=== PATIENT | female | born 1985 | race Hispanic/Latino ===

== ENCOUNTER 2023-04-09 15:47 | Inpatient (IN) | payer SELFPAY ==
[~2023-04-09] VITALS: Ht 160 cm; Wt 76.2 kg
[~2023-04-09 15:47] MED LIST: KETOROLAC TROMETHAMINE 30 MG/ML VIAL ONE; LIDOCAINE HCL 2% LOCAL INJ 5 ML SDV VIAL INJ ONE; ONDANSETRON HCL INJ 2MG/ML 2ML 2 MG/ML VIAL ONE; PROPOFOL IV EMULSION 10 MG/ML 20 ML VIAL ONE; ROCURONIUM BROMIDE 10 MG/ML 5ML VIAL IV ONE; SEVOFLURANE INHAL SOLN 250 ML PEN BTL ONE; SUCCINYLCHOLINE CHLORIDE 20 MG/ML 10ML VIAL ONE
[2023-04-09] MEDS ORDERED: ONDANSETRON HCL INJ 2MG/ML 2ML 2 MG/ML VIAL IV STA ×2 (16:11→19:18)
[2023-04-09] MEDS ORDERED: FAMOTIDINE 20 MG/2 ML VIAL IV STA (16:11)
[2023-04-09] MEDS ORDERED: KETOROLAC TROMETHAMINE 30 MG/ML VIAL IV STA (16:11)
[2023-04-09] MEDS ORDERED: ONDANSETRON HCL INJ 2MG/ML 2ML 2 MG/ML VIAL ONE ×2 (16:14→21:04)
[2023-04-09] MEDS ORDERED: SODIUM CHLORIDE 0.9% 1000ML 1,000 ML ONE (16:14)
[2023-04-09] MEDS ORDERED: SODIUM CHLORIDE 0.9% 1000ML 1,000 ML IV ONE (16:15)
[2023-04-09] MEDS ORDERED: IOPAMIDOL 370 MG/ML 100 ML INFUS..BTL INJ ONE (16:22)
[2023-04-09] MEDS ORDERED: PIPERACILLIN/TAZOBACTAM 3.375 GM VIAL ONE (18:40)
[2023-04-09] MEDS ORDERED: Morphine 2mg Syringe 2 MG/ML SYR IV ONE ×2 (19:30→21:45)
[2023-04-09] MEDS ORDERED: Morphine 4mg INJECTION 4 MG/ML INJ ONE (21:04)
[2023-04-09] MEDS ORDERED: Morphine 4mg INJECTION 4 MG/ML INJ IV ONE (21:45)
[2023-04-09 22:00] VITALS: BP 116/78; PULSE 72; RESP 18; O2SAT 100
[2023-04-09 22:20] VITALS: BP 104/67; PULSE 67; RESP 18; TEMP 98.5; O2SAT 100
[2023-04-09] MEDS ORDERED: ALBUTEROL/IPRATROPIUM 3 ML NEB NEB PRN (22:45)
[2023-04-09] MEDS ORDERED: HYDRALAZINE HCL 20 MG/ML VIAL IV PRN (22:45)
[2023-04-09] MEDS ORDERED: ONDANSETRON HCL INJ 2MG/ML 2ML 2 MG/ML VIAL IV PRN (22:45)
[2023-04-09] MEDS ORDERED: BENZONATATE 100 MG CAP PO PRN (22:45)
[2023-04-09] MEDS ORDERED: DEXTROSE 50% SYRINGE 50 ML IV PRN (22:45)
[2023-04-09] MEDS ORDERED: SIMETHICONE 80 MG CHEW PO PRN (22:45)
[2023-04-09] MEDS ORDERED: MELATONIN 5 MG TABLET PO PRN (22:45)
[2023-04-09] MEDS ORDERED: LIDOCAINE 4% PATCH TP PRN (22:45)
[2023-04-09] MEDS ORDERED: DOCUSATE SODIUM 100 MG CAP PO PRN (22:45)
[2023-04-09] MEDS ORDERED: ACETAMINOPHEN 325 MG TAB PO PRN (22:45)
[2023-04-09] MEDS ORDERED: DIPHENHYDRAMINE HCL 25 MG CAP PO PRN (22:45)
[2023-04-09] MEDS ORDERED: POTASSIUM CHLORIDE 20 MEQ TAB CR PO PRN (22:45)
[2023-04-09 23:10] VITALS: BP 133/100; PULSE 96; RESP 18; TEMP 98.2; O2SAT 100
[2023-04-09] MEDS: HYDROCODONE/APAP 5MG-325MG TAB PO PRN (23:36)
[2023-04-09] MEDS: DEXTROSE 5%/0.9% SOD CHL 1,000 ML IV SCH (23:36)
[2023-04-10] VITALS (7 sets, daily range): BP systolic 86–102; BP diastolic 51–65; PULSE 66–88; RESP 16–18; TEMP 97.8–99.3; O2SAT 96–100
[2023-04-10] MEDS: KETOROLAC TROMETHAMINE 30 MG/ML VIAL IV PRN ×2 (02:46→08:48)
[2023-04-10] MEDS: PANTOPRAZOLE SOD 40 MG TABEC PO SCH (07:30)
[2023-04-10 07:35] LABS: BASOPHILS # (AUTO) 0.1 (0.0-0.1); BASOPHILS % 0.5 % (0.0-1.0); EOSINOPHILS # (AUTO) 0.1 (0.0-0.4); EOSINOPHILS % 0.7 % (0.0-6.0); HEMATOCRIT 31.2 % (34.2-44.1); HEMOGLOBIN 10.2 g/dL (12.0-16.0); LYMPHOCYTES # (AUTO) 1.1 (1.0-3.2); LYMPHOCYTES % 10.5 % (18.0-39.1); MEAN CORPUSCULAR HEMOGLOBIN 27.9 pg (28-32); MEAN CORPUSCULAR HGB CONC 32.7 g/dL (31-35); MEAN CORPUSCULAR VOLUME 85.2 fL (81-99); MONOCYTES % 9.5 % (4.4-11.3); NEUTROPHILS # (AUTO) 8.4 (2.1-6.9); NEUTROPHILS % 78.5 % (38.7-80.0); PLATELET COUNT 236 x10e3/uL (140-360); RED BLOOD COUNT 3.66 x10e6/uL (3.6-5.1); RED CELL DISTRIBUTION WIDTH 16.1 % (11.7-14.4); WHITE BLOOD COUNT 10.73 x10e3/uL (4.8-10.8)
[2023-04-10 07:46] LABS: ANION GAP 10.5 mmol/L (8-16); CALCIUM 8.4 mg/dL (8.4-10.2); CREATININE, SERUM 0.82 mg/dL (0.57-1.11); POTASSIUM 3.5 mmol/L (3.5-5.1)
[2023-04-10] MEDS: DEXTROSE 5%/0.9% SOD CHL 1,000 ML IV SCH (08:50)
[2023-04-10] MEDS ORDERED: ACETAMINOPHEN 1000 MG/100 ML IV STA (13:19)
[2023-04-10] MEDS ORDERED: FENTANYL CITRATE/PF 100MCG/2 ML INJ ONE ×2 (13:41→18:31)
[2023-04-10] MEDS ORDERED: MIDAZOLAM HCL 2 MG/2 ML VIAL ONE (13:41)
[2023-04-10] MEDS ORDERED: SODIUM CHLORIDE 0.9% 1000ML 1,000 ML IV ONE (14:00)
[2023-04-10] MEDS ORDERED: ACETAMINOPHEN 1000 MG/100 ML 100 ML IV ONE (16:27)
[2023-04-10] MEDS ORDERED: SUGAMMADEX SODIUM 200 MG/2 ML VIAL IV ONE (16:27)
[2023-04-10] MEDS ORDERED: BUPIVACAINE HCL 0.5% INJ 30 ML VIAL INJ ONE (16:34)
[2023-04-10] MEDS ORDERED: BUPIVACAINE 0.25% 30ML SDV ONE (16:56)
[2023-04-10] MEDS ORDERED: Morphine 4mg INJECTION 4 MG/ML INJ IV PRN (18:30)
[2023-04-10] MEDS ORDERED: FENTANYL CITRATE/PF 100MCG/2 ML INJ IV ONE (18:30)
[2023-04-10] MEDS ORDERED: ONDANSETRON HCL INJ 2MG/ML 2ML 2 MG/ML VIAL ONE (18:37)
[2023-04-10] MEDS ORDERED: ONDANSETRON HCL INJ 2MG/ML 2ML 2 MG/ML VIAL IV ONE (18:38)
[2023-04-11] VITALS (7 sets, daily range): BP systolic 85–107; BP diastolic 53–65; PULSE 62–85; RESP 16–20; TEMP 98.2–98.8; O2SAT 98–100
[2023-04-11] MEDS: HYDROCODONE/APAP 5MG-325MG TAB PO PRN ×3 (00:19→11:43)
[2023-04-11] MEDS: PANTOPRAZOLE SOD 40 MG TABEC PO SCH (06:00)
[2023-04-11 14:16] LABS: HEMATOCRIT 28.7 % (34.2-44.1); HEMOGLOBIN 8.8 g/dL (12.0-16.0)
[2023-04-11 14:38] LABS: ANION GAP 11.6 mmol/L (8-16); CALCIUM 8.4 mg/dL (8.4-10.2); CREATININE, SERUM 0.83 mg/dL (0.57-1.11); POTASSIUM 3.6 mmol/L (3.5-5.1)
[2023-04-11] MEDS ORDERED: SODIUM CHLORIDE 0.9% 500ML 500 ML IV ONE (15:00)
[2023-04-11] MEDS: ACETAMINOPHEN/CODEINE 300MG - 30MG TAB PO PRN (17:35)
[2023-04-12 00:31] VITALS: BP 97/58; PULSE 73; RESP 19; TEMP 98.9; O2SAT 98
[2023-04-12 04:38] VITALS: BP 97/63; PULSE 69; RESP 18; TEMP 98.4; O2SAT 99
[2023-04-12] MEDS: ACETAMINOPHEN/CODEINE 300MG - 30MG TAB PO PRN ×2 (05:33→14:56)
[2023-04-12 06:09] LABS: BASOPHILS % 0.6 % (0.0-1.0); EOSINOPHILS # (AUTO) 0.1 (0.0-0.4); EOSINOPHILS % 1.6 % (0.0-6.0); HEMATOCRIT 31.1 % (34.2-44.1); HEMOGLOBIN 8.8 g/dL (12.0-16.0); LYMPHOCYTES # (AUTO) 1.8 (1.0-3.2); LYMPHOCYTES % 26.3 % (18.0-39.1); MEAN CORPUSCULAR HGB CONC 28.3 g/dL (31-35); MEAN CORPUSCULAR VOLUME 95.4 fL (81-99); MONOCYTES # (AUTO) 0.5 (0.2-0.8); MONOCYTES % 6.6 % (4.4-11.3); NEUTROPHILS # (AUTO) 4.5 (2.1-6.9); NEUTROPHILS % 64.6 % (38.7-80.0); PLATELET COUNT 227 x10e3/uL (140-360); RED BLOOD COUNT 3.26 x10e6/uL (3.6-5.1); RED CELL DISTRIBUTION WIDTH 16.6 % (11.7-14.4); WHITE BLOOD COUNT 6.99 x10e3/uL (4.8-10.8)
[2023-04-12 06:31] LABS: ANION GAP 9.5 mmol/L (8-16); CALCIUM 8.1 mg/dL (8.4-10.2); CREATININE, SERUM 0.64 mg/dL (0.57-1.11); POTASSIUM 3.5 mmol/L (3.5-5.1)
[2023-04-12 08:00] VITALS: BP_SYST 96; BP_SYST 97; BP_DIAS 53; BP_DIAS 63; PULSE 69; PULSE 85; RESP 18; RESP 20; TEMP 98.4; TEMP 98.6; O2SAT 99
[2023-04-12 09:08] VITALS: BP 103/57; PULSE 78; RESP 16; TEMP 98.6; O2SAT 100
[2023-04-12] MEDS: PANTOPRAZOLE SOD 40 MG TABEC PO SCH (10:18)
[2023-04-12 11:41] VITALS: BP 106/64
[2023-04-12 12:42] VITALS: BP 106/64; PULSE 73; RESP 16; TEMP 98.8; O2SAT 100
[2023-04-12] MEDS ORDERED: ONDANSETRON HCL 4 MG ORAL DISINTEGRATING TAB PO PRN (12:45)
== END 2023-04-12 15:23 | disposition home or self-care (01) | DRG 419 ==
LOC: FSED 15:59 → ERHOLD 18:52 → MED/SURG2 22:05
PROVIDERS: ADMIT Internal Medicine; ATTEND Internal Medicine
PROC: 0FT44ZZ Resection of Gallbladder, Percutaneous Endoscopic Approach (ICD-10-PCS; principal; 2023-04-10 16:56)
DX: K80.00 Calculus of gallbladder with acute cholecystitis without obstruction (principal); R51.9 Headache, unspecified; I95.89 Other hypotension
CPT/HCPCS: 36415; 74177; 76705; 80048; 80076; 81003; 81025; 85014; 85018; 85025; 88304; 96374; 96375; 96376; 99284; J0330; J1885; J2001; J2250; J2270; J2405; J2543; J7030; J7040; J7042; Q9967

== ENCOUNTER 2024-02-26 11:14 | Emergency (ER) | payer SELFPAY ==
[~2024-02-26] VITALS: Ht 160 cm; Wt 76.2 kg
[2024-02-26 11:49] VITALS: PULSE 82; RESP 16; TEMP 98.5
[2024-02-26] MEDS ORDERED: IBUPROFEN200 MG PO (12:58)
[2024-02-26] MEDS ORDERED: TYLENOL325 MG PO (12:58)
[2024-02-26] MEDS ORDERED: MUPIROCIN22 GM TOP (13:03)
[2024-02-26] MEDS ORDERED: DOXYCYCLINE HY100 MG PO (13:03)
[2024-02-26] MEDS: BACITRACIN ZINC 0.9GM TP ONE (13:31)
[2024-02-26 13:49] VITALS: BP 129/84; PULSE 71; RESP 18; TEMP 98.6; O2SAT 100
== END 2024-02-26 13:41 | disposition home or self-care (01) ==
LOC: FSED 11:18
DX: S50.01XA Contusion of right elbow, initial encounter (principal); S50.311A Abrasion of right elbow, initial encounter; W01.0XXA Fall on same level from slipping, tripping and stumbling without subsequent striking against object, initial encounter; Y93.01 Activity, walking, marching and hiking; Y92.511 Restaurant or cafe as the place of occurrence of the external cause
CPT/HCPCS: 99284

== ENCOUNTER 2024-07-28 05:03 | Emergency (ER) | payer SELFPAY ==
[~2024-07-28] VITALS: Ht 160 cm; Wt 77.6 kg
[~2024-07-28 05:03] MED LIST changes: +DOXYCYCLINE HY100 MG PO; +IBUPROFEN200 MG PO; -KETOROLAC TROMETHAMINE 30 MG/ML VIAL ONE; -LIDOCAINE HCL 2% LOCAL INJ 5 ML SDV VIAL INJ ONE; +MUPIROCIN22 GM TOP; -ONDANSETRON HCL INJ 2MG/ML 2ML 2 MG/ML VIAL ONE; -PROPOFOL IV EMULSION 10 MG/ML 20 ML VIAL ONE; -ROCURONIUM BROMIDE 10 MG/ML 5ML VIAL IV ONE; -SEVOFLURANE INHAL SOLN 250 ML PEN BTL ONE; -SUCCINYLCHOLINE CHLORIDE 20 MG/ML 10ML VIAL ONE; +TYLENOL325 MG PO
[2024-07-28 05:13] VITALS: PULSE 99; RESP 18; TEMP 97.8
[2024-07-28] MEDS: SODIUM CHLORIDE 0.9% 1000ML 1,000 ML IV ONE (06:13)
[2024-07-28] MEDS: PROMETHAZINE HCL (IM) 25 MG/ML VIAL IM ONE (06:13)
[2024-07-28] MEDS ORDERED: ONDANSETRON ODT4 MG PO (06:36)
[2024-07-28] MEDS ORDERED: PEPCID20 MG PO (06:44)
[2024-07-28 07:05] VITALS: BP 136/75; PULSE 86; RESP 18; TEMP 98; O2SAT 99
== END 2024-07-28 07:05 | disposition home or self-care (01) ==
LOC: FSED 05:16
DX: R11.2 Nausea with vomiting, unspecified (principal); E86.0 Dehydration; K21.9 Gastro-esophageal reflux disease without esophagitis; Z11.52 Encounter for screening for COVID-19
CPT/HCPCS: 0223U; 80053; 81003; 81025; 85025; 87400; 96372; 99283; J2550; J7030